=== PATIENT | male | born 1960 | race Caucasian/White ===

== ENCOUNTER 2016-09-21 06:27 | Day surgery (SDC) | payer OTHER ==
[~2016-09-21] VITALS: Ht 180.3 cm; Wt 130.8 kg
[2016-09-21] VITALS (13 sets, daily range): BP systolic 103–124; BP diastolic 53–75; PULSE 56–76; RESP 12–22; TEMP 97.6–97.7; O2SAT 92–100; Ht 180.3 cm; Wt 130.8 kg
[~2016-09-21 06:27] MED LIST: ASPI-557 PO; ATOR20TA59 PO; LOSA50TA52 PO
--- OUTSIDE RECORDS SUMMARY | 2016-09-21 06:30 | XMS REPORT | Continuity of Care Document ---
Author Author [facility] Organization [facility] Address Unknown Phone Unavailable Allergies Active Description Code Type Severity Reaction Onset Reported/Identified Relationship to Patient Clinical Status Yes No Known Medication Allergies NKMA N/A N/A 02/03/2015 Medications Problems Procedures Results Encounters ACCT No. Visit Date/Time Discharge Status Pt. Type Provider Facility Loc./Unit Complaint [id number] 02/02/2016 15:00:00 2015 23:59:00 DIS Outpatient [facility] Sleep CP CPAP SUPPLIES [id number] 02/02/2016 14:54:00 2015 23:59:00 DIS Outpatient Elise Gómez [facility] Sleep CP 1 yr lisa cpap download also [id number] 2016 08:46:00 2015 23:59:00 DIS Outpatient Tom Cole [facility] New Surg TCPA periumbilical lymph node [id number] 02/03/2015 15:31:00 2014 23:59:00 DIS Outpatient Elise Gómez [facility] CP cpap 9cm ra sumit elise [id number] 02/03/2015 14:44:00 2014 23:59:00 DIS Outpatient [facility] Sleep CP past [place] cpap [id number] 02/03/2015 10:17:00 2014 23:59:00 DIS Outpatient [facility] CP CPAP
--- OUTSIDE RECORDS SUMMARY | 2016-09-21 06:30 | XMS REPORT | Referral Summary ---
Author Author [facility] Organization [facility] Address Unknown Phone Unavailable Care Team Providers Care Medical Office Worker Name Role Phone Mari Montano Primary Care Physician [phone] Encounter VC Date(s): 02/02/16 - 02/02/16 [facility] [place] [address] [place], [place] [address] Discharge Disposition: 01-Home or Self Care Attending Physician: Elise Gómez Admitting Physician: Elise Gómez Vital Signs No data available for this section Problem List Condition Effective Dates Status Health Status Informant Coronary Artery Active Disease(Confirmed)1 H. pylori 2004 Active infection(Confirmed) High Active Cholesterol(Confirme d)2 Severe obstructive Active sleep apnea(Confirmed) Overweight(Confirmed Active )3 1See Conversion Document. 2See Conversion Document. 3See Conversion Document. Allergies, Adverse Reactions, Alerts No Known Medication Allergies Medications aspirin 81 mg, Oral, Daily, 0 Refill(s) Start Date: 01/27/16 Status: Ordered atorvastatin 10 mg oral tablet mg tabs, Oral, Bedtime (once a day), 0 Refill(s) Start Date: 02/03/15 Status: Ordered LamISIL See Instructions, 2 QD FOR THE FIRST WEEK OF THE MONTH THEN OFF 3 WEEKS AND THEN REPEAT MONTHLY, 0 Refill(s) Start Date: 01/27/16 Status: Ordered Results No data available for this section Immunizations No data available for this section Procedures Procedure Date Related Diagnosis Body Site H/O umbilical hernia repair1 2011 heart cath with stents,2, 3 2009 H/O umbilical hernia repair 10/2006 HBP (high blood pressure)4, 5 High cholesterol Left ACL6 1mceachern 2Amirani. See Conversion Document. 3with stent 4SELF 5PATIENT 64592's. See Conversion Document. Social History Social History Type Response Smoking Status Light tobacco smoker; Type: Cigarettes1 1Pt said that he smoked for bout 10 years. Pt quit late 80's Assessment and Plan Extracted from: Title: CPAP YEARLY Author: Zelda Ramey SCRAP STRIPPER HAND Date: 02/02/16 Mr. Park is seen in the office today for ongoing management of obstructive sleep apnea and CPAP utilization. Today's weight is 298, this is up 8 pounds from last visit. Today's epworth is 9 , this is down 2 points from last visit. Current CPAP pressure is 9cm of H2O. He uses a heated humidifier. He has used his CPAP 365 out of the last 365 nights, averaging 6 hours per session. This equates to an over 4 hour compliance for this period of 100%. Mask fit and headgear; mask is comfortable and headgear is good, no problems with air leaks or sore spots. He currently uses an soft gel nasal mask size medium. Mr. Park denies any problems with snoring, nasal congestion, or epistaxis. He states he is rested upon waking, and denies any waking headaches. He consurmes 2-3 cups of caffeinated beverages per day with no alcoholic beverages per evening. He is satisfied with CPAP and willing to continue. No new changes to medical history. Impression: Obstructive sleep apnea adequately treated on CPAP. Recommendations and actions: 1. Wear CPAP with all sleep. 2. Change supplies as needed. 3. Weight loss. Follow up will be on a yearly basis and prn. PCP: Anson Merino M.D. Extracted from: Title: CPAP SUPPLIES Author: Zelda Ramey SCRAP STRIPPER HAND Date: 02/02/16 [facility] tubing
--- OUTSIDE RECORDS SUMMARY | 2016-09-21 06:30 | XMS REPORT | Referral Summary ---
Author Author [facility] [employer] Organization [facility] [employer] Address Unknown Phone Unavailable Care Team Providers Care Accounting Machine Operator Name Role Phone Mari Montano Primary Care Physician [phone] Encounter VC Date(s): 02/03/15 - 02/03/15 [facility] [place] [address] [place], [place] [address] Discharge Disposition: 01-Home or Self Care Attending Physician: Facility Fee, [facility] Admitting Physician: Facility Fee, [facility] Vital Signs No data available for this section Problem List Condition Effective Dates Status Health Status Informant Coronary Artery Active Disease(Confirmed)1 High Active Cholesterol(Confirme d)2 Severe obstructive Active sleep apnea(Confirmed) Overweight(Confirmed Active )3 1See Conversion Document. 2See Conversion Document. 3See Conversion Document. Allergies, Adverse Reactions, Alerts No Known Medication Allergies Medications atorvastatin 10 mg oral tablet mg tabs, Oral, Bedtime (once a day), 0 Refill(s) Start Date: 02/03/15 Status: Ordered Results No data available for this section Immunizations No data available for this section Procedures Procedure Date Related Diagnosis Body Site heart cath with stents,1 2009 Left ACL2 1Amirani. See Conversion Document. 11302's. See Conversion Document. Social History Social History Type Response Smoking Status Former smoker1 1Pt said that he smoked for bout 10 years. Pt quit late 80's Assessment and Plan No data available for this section
--- OUTSIDE RECORDS SUMMARY | 2016-09-21 06:30 | XMS REPORT | Referral Summary ---
Author Author [facility] Organization [facility] Address Unknown Phone Unavailable Care Team Providers Care Trumpet Player Name Role Phone Mari Montano Primary Care Physician [phone] Encounter VC Date(s): 01/27/16 - 01/27/16 [facility] [address] [place] [address] [place] [address] Discharge Diagnosis: Stitch granuloma Discharge Disposition: 01-Home or Self Care Attending Physician: Tom Boo MD Admitting Physician: Tom Boo MD Referring Physician: Anson Montano DO Vital Signs Most recent to 1 oldest [Reference Range]: Temperature Tympanic 36.4 degC [36.6-38.1 degC] *LOW* (01/27/16 8:53 AM) Peripheral Pulse 69 bpm Rate [60-100 bpm] (01/27/16 8:53 AM) Blood Pressure 128/60 mmHg [90-140/60-90 mmHg] (01/27/16 8:53 AM) SpO2 98 % (01/27/16 8:53 AM) Problem List Condition Effective Dates Status Health [...] See Conversion Document. 3with stent 4SELF 5PATIENT 17193's. See Conversion Document. Social History Social History Type Response Smoking Status Light tobacco smoker; Type: Cigarettes1 1Pt said that he smoked for bout 10 years. Pt quit late 80's Assessment and Plan Extracted from: Title: Office Visit Note Author: Tom Boo MD Date: 01/27/16 Assessment/Plan 1.Stitch granuloma Ordered: Office Visit Level 2 New 22934 Plan: No Further Intervention/Evaluation at This Time. Follow from Clinical Standpoint. I did review the patient's chart including office note performed by his PCP from January 14, 2016. I did go back and review my operative note from January 13, 2012. I did incorporate alarge piece of meshlaparoscopically beneaththe fascialdefect. Mesh wassecured in a transabdominal fashion utilizing0 Prolene sutures. I informed the patient that it was my clinical intuition that this hard firm nodularitylocatedabove the level umbilicus that has been present ever since his priorumbilical herniorrhaphy 4 years ago was theresult ofone of myformer transabdominalsutures. I informed the patient that I felt that he likely developedsome"scar tissue" surrounding this Prolene suture resultingin the nodularity. I informed the patientthat there is a processknown as a "sister Enma rivers"where anindividual with anaggressiveintra-abdominalcancerwilldrop metastasisanddevelop a peritoneal implantnear the umbilicus resulting in a firm nodularity surrounding the "belly button". I do not feel however that this is theunderlying etiology in his situation as result of the above circumstances. Given the fact this nodularity is not causinghim any element of pain or discomfort and has not changed over last 4 yearsIdo not feel that any type of further evaluation nor intervention is indicated at this time. I informed the patient that if he began to develop painsurrounding the umbilicus orifthis nodularity was increasing in its sizeEshould return to the office for further evaluation at that time. Otherwise patient to return to PCP for ongoing care.
--- OUTSIDE RECORDS SUMMARY | 2016-09-21 06:30 | XMS REPORT | Referral Summary ---
Author Author [facility] Organization [facility] [employer] [facility] [place] Address Unknown Phone Unavailable Care Team Providers Care Supervising Floorperson Name Role Phone Mari Montano Primary Care Physician [phone] Encounter VC Date(s): 02/03/15 - 02/03/15 [facility] [place] [place] [address] [place], [place] [address] Discharge Disposition: 01-Home or Self Care [...] 2009 Left ACL2 1Amirani. See Conversion Document. 64532's. See Conversion Document. Social History Social History Type Response Smoking Status Former smoker1 1Pt said that he smoked for bout 10 years. Pt quit late 80's Assessment and Plan No data available for this section
--- OUTSIDE RECORDS SUMMARY | 2016-09-21 06:30 | XMS REPORT | Referral Summary ---
Author Author [facility] Organization [facility] Address Unknown Phone Unavailable Care Team Providers Care Tool And Die Maker/Designer Name Role Phone Mari Montano Primary Care Physician [phone] Encounter VC Date(s): 02/03/15 - 02/03/15 [facility] [place] [place] [address] [place], [place] [address] Discharge Diagnosis: Severe obstructive sleep apnea Discharge Disposition: 01-Home or Self Care Attending Physician: Elise Gómez Admitting Physician: Elise Gómez Vital Signs Most recent to 1 oldest [Reference Range]: Peripheral Pulse 74 bpm Rate [60-100 bpm] (02/03/15 2:56 PM) Blood Pressure 112/78 mmHg [90-140/60-90 mmHg] (02/03/15 2:56 PM) SpO2 95 % (02/03/15 2:56 PM) Problem List Condition Effective Dates Status Health [...] 2009 Left ACL2 1Amirani. See Conversion Document. 61253's. See Conversion Document. Social History Social History Type Response Smoking Status Former smoker1 1Pt said that he smoked for bout 10 years. Pt quit late 80's Assessment and Plan Extracted from: Title: CPAP SUPPLIES Author: Zelda Ramey RRT Date: 02/03/15 Soft gel:med. Extracted from: Title: Office Visit Note Author: Elise Gómez Date: 02/03/15 Assessment/Plan 1.Severe obstructive sleep apnea - Adequate treatment with CPAP symptomatically and objectivelyat current pressure withexcellent adherence to therapy. Overnight oximetry on CPAP at 9cm to ensure adequate oxygenation with his history of coronary artery disease. Supplies as needed. Continue CPAP with all sleep at 9cm. -CPAP download reviewed with the patient and patient is complying with and benefitting from treatment. -Avoid driving , partaking in hazardous activities, or operating heavy machinery if drowsy. -Continue appropriate cleaning of the machine/humidifier and update of all supplies including mask , tubing , and filters . -Return for follow-up in 1 year with RT . Return/call sooner if any problems arise in the meantime.
[2016-09-21] MEDS ORDERED: LR 1,000 ML IV SCH (07:00)
[2016-09-21] MEDS ORDERED: LIDOCAINE 1% (10mg/ml) 2ml SDV INJ ONE (07:00)
[2016-09-21] MEDS ORDERED: MIDAZOLAM 5mg/5ml INJECTION ONE (07:53)
[2016-09-21] MEDS ORDERED: SALINE FLUSH 10ml SYRINGE ONE (07:54)
[2016-09-21] MEDS ORDERED: FENTANYL 100mcg/2ml INJECTION ONE (07:54)
[2016-09-21] MEDS ORDERED: MIDAZOLAM 5mg/5ml INJECTION IV PRN (08:02)
[2016-09-21] MEDS ORDERED: FENTANYL 100mcg/2ml INJECTION IV PRN (08:02)
--- NOTE | 2016-09-21 14:31 | OPNOTEF ---
DATE OF OPERATION 09/21/2016 INDICATION Colorectal cancer screening. OPERATION Colonoscopy SURGEON Anson Montano D.O. ASA CLASSIFICATION II Consent signed and on the chart. Routine monitoring with ECG, continuous oximetry and noninvasive blood pressure was performed throughout the procedure and found to be within normal limits. IV sedation was performed with a total of 8 mg of Versed and 80 mcg of Fentanyl. Prior to the procedure, the patient was brought to the endoscopy lab where a brief review of his medical history and physical exam was performed. The procedure was described to him and he was agreeable to continue. All questions were answered. DESCRIPTION OF OPERATION He was given IV sedation and placed in the left lateral decubitus position. A digital rectal exam revealed a mildly enlarged prostate, otherwise normal. No masses. The colonoscope was introduced through the anal verge and advanced to the cecum. Upon reaching the cecum, careful inspection of the mucosa was performed. Three polyps were removed; one at the proximal ascending colon, one at the transverse colon and this was one was also removed with the snare, and then also at 25 cm, polyp was removed. In addition, he did have sigmoid diverticulosis, otherwise normal. He tolerated the procedure well. There were no complications. IMPRESSION 1. Polyps removed at the proximal ascending colon, transverse colon (this polyp was removed with the snare), and 25 cm. 2. Sigmoid diverticulosis. RECOMMENDATIONS 1. Review the path report when available. 2. Repeat as indicated. MTDD
== END 2016-09-21 09:57 | disposition home or self-care (01) ==
LOC: NSC 06:27
PROVIDERS: ATTEND Internal Medicine
DX: Z12.11 Encounter for screening for malignant neoplasm of colon (principal); D12.3 Benign neoplasm of transverse colon; D12.2 Benign neoplasm of ascending colon; K57.30 Diverticulosis of large intestine without perforation or abscess without bleeding; Z87.891 Personal history of nicotine dependence; E66.9 Obesity, unspecified; Z68.41 Body mass index [BMI] 40.0-44.9, adult; I25.10 Atherosclerotic heart disease of native coronary artery without angina pectoris; I10 Essential (primary) hypertension; R73.01 Impaired fasting glucose; G47.33 Obstructive sleep apnea (adult) (pediatric); Z79.82 Long term (current) use of aspirin; Z79.899 Other long term (current) drug therapy
CPT/HCPCS: 45380; 45385; J2250; J3010; J7120